=== PATIENT | male | born 1985 | race Caucasian/White ===

== ENCOUNTER 2017-03-12 18:36 | Inpatient (IN) | payer MEDICAID ==
[~2017-03-12] VITALS: Ht 167.6 cm; Wt 85.3 kg
[2017-03-12] MEDS ORDERED: Acetaminophen 500mg (ES) tab ORAL ONE (19:30)
[2017-03-12] MEDS ORDERED: Albuterol ud Inhalation HHN ONE ×2 (19:45→20:45)
--- NOTE | 2017-03-12 20:08 | Emergency Room Report ---
History of Present Illness General Chief Complaint: Fever Source: Patient Present Illness HPI This patient states that he has had cough, fever and chills with sputum production for the past week. He did see his primary care physician and was started on azithromycin. The patient continues to have severe cough and sputum production and shortness of breath. He has also had ongoing fever and chills. He admits that he does have a history of asthma as a child but has not been on an inhaler in a very long time. He does smoke tobacco about one pack-a-day. He states that he has not been smoking for the past few days. He is also been trying [id number]-ubvfgaz medications as NyQuil, DayQuil and Robitussin. He is been using Cepacol lozenges. He has not had any relief. Allergies: Coded Allergies: No Known Allergies (Unverified , 03/12/17) Patient History Past Medical History: see triage record, asthma Past Surgical History: none Social History: Reports: alcohol use, smoking, Denies: drug use Reviewed Nursing Documentation: PMH: Agreed, PSxH: Agreed Nursing Documentation-PMH Past Medical History: No History, Except For Hx Asthma: Yes Review of Systems All Other Systems: negative except mentioned in HPI Physical Exam Vital Signs Date Time Temp Pulse Resp B/P Pulse Ox O2 Delivery O2 Flow Rate FiO2 03/12/17 18:42 103.1 117 24 143/91 93 Room Air Sp02 EP Interpretation: reviewed, normal General Appearance: no apparent distress, alert, GCS 15, non-toxic Head: normocephalic, atraumatic Eyes: bilateral eye PERRL, bilateral eye normal inspection ENT: hearing grossly normal, normal pharynx, no angioedema, normal voice Neck: full range of motion, supple/symm/no masses Respiratory: no respiratory distress, no retraction, no accessory muscle use, speaking full sentences, wheezing, expiration Cardiovascular #1: no edema, tachycardia Gastrointestinal: normal bowel sounds, soft, non-distended, no guarding, no rebound, tenderness - Along the abdomen muscles. Rectal: deferred Musculoskeletal: normal inspection, normal range of motion Neurologic: alert, oriented x3, responsive, motor strength/tone normal, sensory intact, speech normal Psychiatric: judgement/insight normal, memory normal, mood/affect normal, no suicidal/homicidal ideation Skin: normal color, no rash, warm/dry, well hydrated Medical Decision Making Diagnostic Impression: Primary Impression: Asthma exacerbation Additional Impression: Atypical pneumonia ER Course This patient presents with an asthma exacerbation and a chest x-ray that is consistent with an atypical pneumonia. The patient continued to have wheezing despite multiple breathing treatments in the emergency department. Patient was given Rocephin here in the emergency department and oral steroids. Patient continued to have wheezing and shortness of breath and was maintaining SpO2 around 92%. Therefore, I felt I should admit this patient for further pulmonary hygiene, evaluation and treatment. Labs Test 03/12/17 19:38 03/12/17 19:46 Urine Color Yellow Urine Appearance Clear Urine pH 6 (4.5-8.0) Urine Specific [place] 1.015 (1.005-1.035) Urine Protein 4+ (NEGATIVE) Urine Glucose (UA) Negative (NEGATIVE) Urine Ketones 3+ (NEGATIVE) Urine Occult Blood 3+ (NEGATIVE) Urine Nitrite Negative (NEGATIVE) Urine Bilirubin Negative (NEGATIVE) Urine Urobilinogen 1 MG/DL (0.0-1.0) Urine Leukocyte Esterase 1+ (NEGATIVE) Urine Opiates Screen Negative (NEGATIVE) Urine Barbiturates Screen Negative (NEGATIVE) Phencyclidine (PCP) Screen Negative (NEGATIVE) Urine Amphetamines Screen Negative (NEGATIVE) Urine Benzodiazepines Screen Negative (NEGATIVE) Urine Cocaine Screen Negative (NEGATIVE) Urine Marijuana (THC) Screen Negative (NEGATIVE) White Blood Count 10.1 K/UL (4.8-10.8) Red Blood Count 4.66 M/UL (4.70-6.10) Hemoglobin 14.1 G/DL (14.2-18.0) Hematocrit 40.2 % (42.0-52.0) Mean Corpuscular Volume 86 FL (80-99) Mean Corpuscular Hemoglobin 30.4 PG (27.0-31.0) Mean Corpuscular Hemoglobin Concent 35.2 G/DL (32.0-36.0) Red Cell Distribution Width 10.6 % (11.6-14.8) Platelet Count 210 K/UL (150-450) Mean Platelet Volume 7.0 FL (6.5-10.1) Neutrophils (%) (Auto) 78.1 % (45.0-75.0) Lymphocytes (%) (Auto) 11.1 % (20.0-45.0) Monocytes (%) (Auto) 9.9 % (1.0-10.0) Eosinophils (%) (Auto) 0.0 % (0.0-3.0) Basophils (%) (Auto) 0.9 % (0.0-2.0) Sodium Level 130 mEQ/L (135-145) Potassium Level 3.5 mEQ/L (3.4-4.9) Chloride Level 85 mEQ/L (98-107) Carbon Dioxide Level 30 mEQ/L (20-30) Anion Gap 15 (5-15) Blood Urea Nitrogen 7 mg/dL (7-23) Creatinine 0.9 mg/dL (0.7-1.2) Estimat Glomerular Filtration Rate > 60 mL/min (>60) Glucose Level 104 mg/dL (74-106) Calcium Level 8.9 mg/dL (8.6-10.2) Total Bilirubin 0.2 mg/dL (0.0-1.2) Aspartate Amino Transf (AST/SGOT) 57 U/L (5-40) Alanine Aminotransferase (ALT/SGPT) 26 U/L (3-41) Alkaline Phosphatase 66 U/L (40-129) Total Protein 7.6 g/dL (6.6-8.7) Albumin 3.7 g/dL (3.5-5.2) Globulin 3.9 g/dL Albumin/Globulin Ratio 0.9 (1.0-2.7) Chest X-Ray Diagnostic Results Chest X-Ray Ordered: Yes # of Views/Limited/Complete: 1 View Interpretation: no effusion, no pneumothorax, no acute cardiopulmonary disease , other - Small scatter opacities R. lung Indication: Shortness of Breath Impression: Other Date Electronically Signed: Mar 12, 2017 Time Electronically Signed: 20:50 Interpreting ER Physician: Joanie Last Vital Signs Date Time Temp Pulse Resp B/P Pulse Ox O2 Delivery O2 Flow Rate FiO2 03/12/17 19:50 98 18 93 Room Air 03/12/17 18:42 103.1 143/91 Disposition: ADMITTED INPATIENT Condition: Serious NIYA SHELDON D.O. Mar 12, 2017 20:08
[2017-03-12] MEDS ORDERED: cefTRIAXone 1 GM in NS 55 ML IVPB ONE (20:30)
[2017-03-12 20:39] LABS: ALANINE AMINOTRANSFERASE 26 U/L (3-41); ALBUMIN/GLOBULIN RATIO 0.9 (1.0-2.7); ANION GAP 15 (5-15); ASPARTATE AMINO TRANSFERASE 57 U/L (5-40); CALCIUM 8.9 mg/dL (8.6-10.2); CARBON DIOXIDE 30 mEQ/L (20-30); CHLORIDE 85 mEQ/L (98-107); CREATININE 0.9 mg/dL (0.7-1.2); GLOMERULAR FILTRATION RATE > 60 mL/min (>60); HEMOLYSIS 10; POTASSIUM 3.5 mEQ/L (3.4-4.9); SODIUM 130 mEQ/L (135-145); TOTAL PROTEIN 7.6 g/dL (6.6-8.7)
[2017-03-12] MEDS ORDERED: PredniSONE 20mg tab ORAL ONE (20:45)
[2017-03-12 20:55] LABS: APPEARANCE,URINE CLEAR; KETONES,URINE 3+ (NEGATIVE); LEUKOCYTE ESTERASE ,URINE 1+ (NEGATIVE); NITRITE,URINE NEGATIVE (NEGATIVE); PH,URINE 6 (4.5-8.0); PROTEIN,URINE 4+ (NEGATIVE); UROBILINOGEN,URINE 1 MG/DL (0.0-1.0)
[2017-03-12 20:57] LABS: BASOPHILS % (AUTO) 0.9 % (0.0-2.0); LYMPHOCYTES % (AUTO) 11.1 % (20.0-45.0); MEAN CORPUSCULAR HEMOGLOBIN 30.4 PG (27.0-31.0); MEAN CORPUSCULAR HGB CONC 35.2 G/DL (32.0-36.0); MEAN CORPUSCULAR VOLUME 86 FL (80-99); MONOCYTES % (AUTO) 9.9 % (1.0-10.0); NEUTROPHILS % (AUTO) 78.1 % (45.0-75.0); PLATELET COUNT 210 K/UL (150-450); RED BLOOD COUNT 4.66 M/UL (4.70-6.10); RED CELL DISTRIBUTION WIDTH 10.6 % (11.6-14.8); WHITE BLOOD COUNT 10.1 K/UL (4.8-10.8)
[2017-03-12 21:41] LABS: RBC,URINE 20-30 /HPF (0 - 0); WBC,URINE 0-2 /HPF (0 - 0)
[2017-03-12 21:42] LABS: BACTERIA,URINE FEW /HPF
[2017-03-12 22:29] VITALS: BP 132/82
[2017-03-12] MEDS ORDERED: DuoNeb 0.5-3(2.5)mg/3ml neb HHN PRN (22:30)
[2017-03-12] MEDS ORDERED: LORazepam Inj 2mg/ml 1ml IV PRN (22:30)
[2017-03-12] MEDS ORDERED: Morphine Sulfate 2mg/ml Inj IVP PRN (22:30)
[2017-03-12] MEDS ORDERED: Ketorolac 30mg Inj IV PRN (22:30)
[2017-03-12] MEDS ORDERED: Nitroglycerin Subl 0.4mg tab (Bottle Of 25) SL PRN (22:30)
[2017-03-13] MEDS ORDERED: Zosyn 3.375gm inj ONE (00:17)
[2017-03-13 00:33] VITALS: BP 142/82
[2017-03-13] MEDS: Zosyn 3.375gm q8h **Extended infusion IVPB SCH ×6 (00:35→18:15)
[2017-03-13] MEDS: Promethazine/Codeine 5ml UD ORAL PRN ×2 (03:16→10:03)
[2017-03-13 04:24] LABS: REFLEX LACTIC ACID YES OR NO YES
[2017-03-13] MEDS: Solu-MEDROL 125mg Inj IV SCH ×3 (04:36→18:18)
[2017-03-13 04:47] VITALS: BP 120/70
[2017-03-13] MEDS ORDERED: Piperacillin/Tazobactam 2.25 GM in D5W 55 ML IV SCH (06:00)
[2017-03-13 08:33] VITALS: BP 145/90
[2017-03-13] MEDS ORDERED: Theophylline ER 100mg ORAL SCH (09:00)
[2017-03-13] MEDS: Heparin 5000 units/ml inj SUBQ SCH ×2 (10:15→20:59)
[2017-03-13 11:56] VITALS: BP 135/81
[2017-03-13] MEDS: DuoNeb 0.5-3(2.5)mg/3ml neb HHN SCH ×3 (12:30→22:15)
--- NOTE | 2017-03-13 12:46 | Consultation ---
Consult Note Consult Note ID Dic # [id number] AVILA VERONICA M.D. Mar 13, 2017 12:46
--- NOTE | 2017-03-13 13:01 | Diagnostic Imaging Report ---
Indication: SOB Technique: One view of the chest Comparison: none Findings: Lungs and pleural spaces are clear. Heart size is normal. Of the left lateral lung base is cut off exam. Exam not repeated, per patient request Impression: No acute process
[2017-03-13] MEDS ORDERED: Azithromycin 500 MG in D5W 275 ML IV SCH (14:00)
--- NOTE | 2017-03-13 15:41 | History and Physical ---
History of Present Illness General Date patient seen: Mar 13, 2017 Reason for Hospitalization: Fever Present Illness HPI 31 year old male with hx of asthma presented to ER with CC of cough, fever and chills with sputum production for the past week. He did see his primary care physician and was started on azithromycin. The patient continues to have severe cough and sputum production and shortness of breath. He has also had ongoing fever and chills. He does smoke tobacco about one pack-a-day. He is also been trying vklw-vfk-ugqewth medications as NyQuil, DayQuil and Robitussin. He is been using Cepacol lozenges. He was febrile in ER and admitted for sepsis and fever. Allergies: Coded Allergies: No Known Allergies (Unverified , 03/12/17) Patient History Healthcare decision maker Resuscitation status Full Code Advanced Directive on File Past Medical/Surgical History Past Medical/Surgical History: (1) History of asthma Review of Systems Constitutional: Reports: fever, malaise Respiratory: Reports: shortness of breath, wheezing All Other Systems: negative except mentioned in HPI Physical Exam General Appearance: WD/WN Lines, tubes and drains: peripheral, central line HEENT: normocephalic, atraumatic Neck: non-tender, normal alignment Respiratory/Chest: chest wall non-tender, lungs clear Cardiovascular/Chest: normal peripheral pulses, normal rate Abdomen: normal bowel sounds, non tender Genitourinary/Rectal: normal genital exam Extremities: normal range of motion Skin Exam: normal pigmentation Last 24 Hour Vital Signs Date Time Temp Pulse Resp B/P Pulse Ox O2 Delivery O2 Flow Rate FiO2 03/13/17 12:40 100 18 98 Room Air 03/13/17 12:30 82 18 97 Room Air 03/13/17 11:56 98.2 83 20 135/81 91 Nasal Cannula 03/13/17 08:33 99.1 86 20 145/90 96 Nasal Cannula 2.0 03/13/17 07:24 Nasal Cannula 2.0 28 03/13/17 07:24 97 Nasal Cannula 2.0 28 03/13/17 07:24 82 18 Room Air 03/13/17 04:47 99.5 83 18 120/70 98 Nasal Cannula 2.0 03/13/17 03:20 102.6 119 20 142/82 90 Room Air 03/13/17 00:33 102.6 119 20 142/82 90 Room Air 03/12/17 22:29 100.2 119 22 132/82 92 Room Air 03/12/17 21:11 101 18 Room Air 03/12/17 20:22 101 18 98 Room Air 03/12/17 19:50 98 18 93 Room Air 03/12/17 19:49 98 18 Room Air 03/12/17 18:42 103.1 117 24 143/91 93 Room Air Intake and Output 03/12/17 03/13/17 19:00 07:00 Intake Total 240 ml Balance 240 ml Intake Oral 240 ml # Voids 2 Laboratory Tests Test 03/12/17 19:38 03/12/17 19:46 03/13/17 03:20 03/13/17 09:15 Urine Color Yellow Urine Appearance Clear Urine pH 6 (4.5-8.0) Urine Specific [place] 1.015 (1.005-1.035) Urine Protein 4+ (NEGATIVE) H Urine Glucose (UA) Negative (NEGATIVE) Urine Ketones 3+ (NEGATIVE) H Urine Occult Blood 3+ (NEGATIVE) H Urine Nitrite Negative (NEGATIVE) Urine Bilirubin Negative (NEGATIVE) Urine Urobilinogen 1 MG/DL (0.0-1.0) H Urine Leukocyte Esterase 1+ (NEGATIVE) H Urine RBC 20-30 /HPF (0 - 0) H Urine WBC 0-2 /HPF (0 - 0) Urine Squamous Epithelial Cells None /LPF (NONE/OCC) Urine Bacteria Few /HPF (NONE) Urine Opiates Screen Negative (NEGATIVE) Urine Barbiturates Screen Negative (NEGATIVE) Phencyclidine (PCP) Screen Negative (NEGATIVE) Urine Amphetamines Screen Negative (NEGATIVE) Urine Benzodiazepines Screen Negative (NEGATIVE) Urine Cocaine Screen Negative (NEGATIVE) Urine Marijuana (THC) Screen Negative (NEGATIVE) White Blood Count 10.1 K/UL (4.8-10.8) Red Blood Count 4.66 M/UL (4.70-6.10) L Hemoglobin 14.1 G/DL (14.2-18.0) L Hematocrit 40.2 % (42.0-52.0) L Mean Corpuscular Volume 86 FL (80-99) Mean Corpuscular Hemoglobin 30.4 PG (27.0-31.0) Mean Corpuscular Hemoglobin Concent 35.2 G/DL (32.0-36.0) Red Cell Distribution Width 10.6 % (11.6-14.8) L Platelet Count 210 K/UL (150-450) Mean Platelet Volume 7.0 FL (6.5-10.1) Neutrophils (%) (Auto) 78.1 % (45.0-75.0) H Lymphocytes (%) (Auto) 11.1 % (20.0-45.0) L Monocytes (%) (Auto) 9.9 % (1.0-10.0) Eosinophils (%) (Auto) 0.0 % (0.0-3.0) Basophils (%) (Auto) 0.9 % (0.0-2.0) Sodium Level 130 mEQ/L (135-145) L Potassium Level 3.5 mEQ/L (3.4-4.9) Chloride Level 85 mEQ/L (98-107) L Carbon Dioxide Level 30 mEQ/L (20-30) Anion Gap 15 (5-15) Blood Urea Nitrogen 7 mg/dL (7-23) Creatinine 0.9 mg/dL (0.7-1.2) Estimat Glomerular Filtration Rate > 60 mL/min (>60) Glucose Level 104 mg/dL (74-106) Calcium Level 8.9 mg/dL (8.6-10.2) Total Bilirubin 0.2 mg/dL (0.0-1.2) Aspartate Amino Transf (AST/SGOT) 57 U/L (5-40) H Alanine Aminotransferase (ALT/SGPT) 26 U/L (3-41) Alkaline Phosphatase 66 U/L (40-129) Total Protein 7.6 g/dL (6.6-8.7) Albumin 3.7 g/dL (3.5-5.2) Globulin 3.9 g/dL Albumin/Globulin Ratio 0.9 (1.0-2.7) L Lactic Acid Level 2.10 mmol/L (0.66-2.22) 1.30 mmol/L (0.66-2.22) HIV (1&2) Antibody Rapid Negative (NEGATIVE) Height (Feet): 5 Height (Inches): 6.00 Weight (Pounds): 188 Medications Current Medications Medications (Trade) Dose Ordered Sig/Georgi Route PRN Reason Start Time Stop Time Status Last Admin Dose Admin Acetaminophen (Tylenol) 650 mg Q4H PRN ORAL Mild Pain/Temp > 100.5 03/13/17 08:45 04/12/17 08:44 Albuterol/ Ipratropium (DuoNeb 0.5-3(2.5)mg/3ml) 3 ml Q6HRT HHN 03/13/17 13:00 03/18/17 12:59 03/13/17 12:30 Azithromycin/ Dextrose (Zithromax/D5W) 275 ml @ 275 mls/hr Q24HRS IV 03/13/17 14:00 03/19/17 14:59 Cetylpyridinium Chloride 1 lozenge 1 lozenge Q2H PRN GRETTA sore throat 03/13/17 12:45 04/12/17 12:44 03/13/17 13:03 Dextrose STAT PRN IV Hypoglycemia 03/12/17 22:30 04/11/17 22:29 Heparin Sodium (Porcine) (Heparin 5000 units/ml) 5,000 units EVERY 12 HOURS SUBQ 03/13/17 09:00 04/12/17 08:59 03/13/17 10:15 Ketorolac Tromethamine (Toradol 30mg) 30 mg Q8H PRN IV moderate pain 4-6 03/12/17 22:30 03/17/17 22:29 03/12/17 23:34 Lorazepam (Ativan 2mg/ml 1ml) 0.5 mg Q4H PRN IV For Anxiety 03/12/17 22:30 03/19/17 22:29 Methylprednisolone Sodium Succinate (Solu-MEDROL) 60 mg EVERY 6 HOURS IV 03/13/17 05:00 04/12/17 04:59 03/13/17 12:29 Morphine Sulfate (Morphine Sulfate) 2 mg Q4H PRN IVP severe pain 7-10 03/12/17 22:30 03/19/17 22:29 Nitroglycerin (Ntg) 0.4 mg Q5M X 3 DOSES PRN SL Prn Chest Pain 03/12/17 22:30 04/11/17 22:29 Ondansetron HCl (Zofran) 4 mg Q6H PRN IVP Nausea & Vomiting 03/12/17 22:30 04/11/17 22:29 Piperacillin Sod/ Tazobactam Sod/ Dextrose (Zosyn/D5W) 110 ml @ 27.5 mls/hr Q8H IVPB 03/13/17 01:00 03/20/17 00:59 03/13/17 10:14 Promethazine HCl/ Codeine (Phenergan with Codeine) 5 ml Q6H PRN ORAL cough 03/12/17 22:30 04/11/17 22:29 03/13/17 10:03 Temazepam (Restoril) 15 mg HSPRN PRN ORAL Insomnia 03/12/17 22:30 03/19/17 22:29 03/12/17 23:32 Assessment/Plan Problem List: (1) Atypical pneumonia ICD Codes: J18.9 - Pneumonia, unspecified organism SNOMED: 225190294 (2) Acute asthma exacerbation ICD Codes: J45.901 - Unspecified asthma with (acute) exacerbation SNOMED: 198916844 (3) Sepsis ICD Codes: A41.9 - Sepsis, unspecified organism SNOMED: 14322163 Assessment/Plan IV antibiotics IV steroids check sputum antitussives dvt prophylaxis DEIMAN COPELAND Mar 13, 2017 15:41
[2017-03-13] MEDS ORDERED: Lidocaine 1% MPF 10mg/ml 5ml HHN PRN (15:45)
[2017-03-13 16:09] VITALS: BP 144/90
[2017-03-13 20:00] VITALS: BP 138/79
--- NOTE | 2017-03-13 23:15 | Consultation ---
DATE OF CONSULTATION: INFECTIOUS DISEASES CONSULTATION CONSULTING PHYSICIAN: Jaden Rapp M.D. REFERRING PHYSICIAN: Sona Fulton M.D. REASON FOR CONSULTATION: Evaluation of the patient for pneumonia, bronchitis and antibiotic management. HISTORY OF PRESENT ILLNESS: The patient is a 31-year-old male with past medical history significant for asthma, who was admitted to this medical center with cough and sputum production, and the patient is with pneumonia, bronchitis, asthma exacerbation. Infectious Disease consultation has been requested for further evaluation of the patient's antibiotic management. PAST MEDICAL HISTORY: Significant for asthma. MEDICATIONS: Solu-Medrol and Zosyn. ALLERGIES: No known drug allergies. SOCIAL HISTORY: Significant for smoking cigarettes. FAMILY HISTORY: Noncontributory. REVIEW OF SYSTEMS: HEENT: No recent change in vision or hearing. Pulmonary: Cardiovascular: No chest pain or palpitation. Gastrointestinal/Abdomen: No nausea or vomiting. Genitourinary: No dysuria. Musculoskeletal: No pain in extremities. PHYSICAL EXAMINATION: VITAL SIGNS: Temperature 10.3.1 degrees, pulse is 56, respiratory rate 18, and blood pressure 154/81. HEENT: Mild pale conjunctiva. No icterus. NECK: No lymphadenopathy. CHEST: Coarse with some wheezes and crackles on the bases. HEART: S1 and S2. ABDOMEN: Soft. EXTREMITIES: No cyanosis. NEUROLOGIC: Awake and alert. LABORATORY AND DIAGNOSTIC DATA: White blood cell 10, hemoglobin 14, and platelets 210,000. Urinalysis, 20-30 red blood cells, 0-2 white blood cells. BUN 7 and creatinine 0.1. ALT, AST and alkaline phosphatase unremarkable. HIV test negative. Chest x-ray is pending. ASSESSMENT: The patient is a 31-year-old male with 1. Fever. 2. Probable pneumonia/bronchitis. 3. History of asthma. PLAN: 1. We will continue the patient on Zosyn. We will add Zithromax for atypical coverage. 2. We will continue Solu-Medrol. 3. Monitor CBC. 4. Monitor BMP. 5. Monitor cultures (blood and sputum). 6. Monitor chest x-ray. 7. Based on the patient's clinical course and labs, we will do further recommendation. Thank you, Dr. Fulton, for allowing me to participate in the care of this patient. I will follow this patient with you during this hospitalization. Jaden Rapp M.D. DR: ROHIT JOB#: [id number] CC:
[2017-03-14] MEDS: Solu-MEDROL 125mg Inj IV SCH ×2 (00:08→05:32)
[2017-03-14] MEDS: Promethazine/Codeine 5ml UD ORAL PRN (00:19)
[2017-03-14 00:21] VITALS: BP 125/69
[2017-03-14] MEDS: DuoNeb 0.5-3(2.5)mg/3ml neb HHN SCH ×2 (00:24→07:25)
[2017-03-14] MEDS: Zosyn 3.375gm q8h **Extended infusion IVPB SCH ×4 (01:00→08:51)
[2017-03-14 04:26] VITALS: BP 137/76
[2017-03-14 06:16] LABS: BASOPHILS % (AUTO) 0.4 % (0.0-2.0); EOSINOPHILS % (AUTO) 0.1 % (0.0-3.0); LYMPHOCYTES % (AUTO) 12.6 % (20.0-45.0); MEAN CORPUSCULAR HEMOGLOBIN 30.8 PG (27.0-31.0); MEAN CORPUSCULAR HGB CONC 34.6 G/DL (32.0-36.0); MEAN CORPUSCULAR VOLUME 89 FL (80-99); MEAN PLATELET VOLUME 7.1 FL (6.5-10.1); MONOCYTES % (AUTO) 7.3 % (1.0-10.0); NEUTROPHILS % (AUTO) 79.5 % (45.0-75.0); PLATELET COUNT 257 K/UL (150-450); RED BLOOD COUNT 4.63 M/UL (4.70-6.10); RED CELL DISTRIBUTION WIDTH 11.4 % (11.6-14.8)
[2017-03-14 06:27] LABS: ALANINE AMINOTRANSFERASE 33 U/L (3-41); ALBUMIN/GLOBULIN RATIO 0.9 (1.0-2.7); ANION GAP 15 (5-15); ASPARTATE AMINO TRANSFERASE 72 U/L (5-40); CALCIUM 9.4 mg/dL (8.6-10.2); CARBON DIOXIDE 33 mEQ/L (20-30); CHLORIDE 92 mEQ/L (98-107); CREATININE 0.7 mg/dL (0.7-1.2); CRP QUANT 15.8 mg/dL (< 0.5); GLOMERULAR FILTRATION RATE > 60 mL/min (>60); HEMOLYSIS 4; MAGNESIUM 2.6 mg/dL (1.7-2.5); PHOSPHORUS 4.3 mg/dL (2.5-4.8); SODIUM 140 mEQ/L (135-145); TOTAL PROTEIN 7.5 g/dL (6.6-8.7)
[2017-03-14 07:56] LABS: ERYTHROCYTE SEDIMENTATION RATE 72 MM/HR (0-15)
[2017-03-14] MEDS: Heparin 5000 units/ml inj SUBQ SCH (08:56)
[2017-03-14 08:59] VITALS: BP 141/85
[2017-03-14] MEDS ORDERED: ALBUTEROL SULF8.5 GM INH (10:27)
[2017-03-14] MEDS ORDERED: LEVAQUIN750 MG ORAL (10:29)
[2017-03-14] MEDS ORDERED: NS 275ml ONE (10:44)
--- NOTE | 2017-03-15 13:06 | Discharge Summary ---
Discharge Summary Hospital Course Date of Admission Mar 12, 2017 at 21:48 Date of Discharge Mar 14, 2017 at 10:45 Admitting Diagnosis Asthma exacerbation, PNA HPI Dean Puckett is a 31 year old male who was admitted on Mar 12, 2017 at 21:48 for Asthma Exacerbation, Pneumonia Hospital Course [id number] Discharge Discharge Disposition Patient was discharged to Home (01) Discharge Diagnoses: Tracy Tran NP Mar 15, 2017 13:06
--- NOTE | 2017-03-15 18:15 | Discharge Summary 2 SIG ---
DATE OF ADMISSION: 03/12/2017 DATE OF DISCHARGE: 03/14/2017 HAND WOODWORKING SANDER: Jaden Rapp M.D BRIEF HOSPITAL COURSE: The patient is a 31-year-old male with history of asthma who presented to ER complaining of cough, fever, and chills with sputum production for a week. He was seen by his primary care physician and was started on azithromycin. However, he continued to have severe cough with sputum production and shortness of breath. Edhz-psg-gtwdwni medications were not working. On evaluation at ED, he was febrile. Temperature was 103. He continued to have wheezing despite multiple breathing treatments. He was then admitted to telemetry for further evaluation. Chest x-ray done showed no acute process. He was given Zosyn and Zithromax, and was continued on IV Solu-Medrol. Sputum culture showed growth of normal upper respiratory sallie. Blood culture did not isolate any growth. Symptoms improved, and the patient was eventually discharged home. FINAL DIAGNOSES: 1. Acute asthma exacerbation. 2. Atypical pneumonia. 3. Sepsis. Sona Fulton M.D. I have been assigned to dictate discharge summary on this account and I was not involved in the patient's management. Tracy Tran N.P. DR: BERKLEY JOB#: [id number] CC: VEE
== END 2017-03-14 10:45 | disposition home or self-care (01) | DRG 720 ==
LOC: EMR 19:04 → 3E 21:48 → EDBEDREQ 22:15
DX: A41.9 Sepsis, unspecified organism (principal); J18.9 Pneumonia, unspecified organism; J45.901 Unspecified asthma with (acute) exacerbation
CPT/HCPCS: 36415; 71010; 80053; 80300; 81003; 83605; 83735; 84100; 85025; 85651; 86140; 86703; 87040; 87070; 87205; 94640; 94664; 94760; J7620